=== PATIENT | female | born 1945 | race Two or more races ===

== ENCOUNTER → 2020-03-08 | Outpatient (CLI) | payer OTHER, MEDICAID ==
[~2020-03-08] VITALS: Ht 160 cm; Wt 84.4 kg
[~2020-03-08] MED LIST: ADENOSINE 71 MG in GIVE UN-DILUTED 0 ML IV STA
[2020-03-08 09:30] VITALS: BP 135/52
== END | disposition home or self-care (01) ==
LOC: XYW 08:07
DX: R94.31 Abnormal electrocardiogram [ECG] [EKG] (principal)
CPT/HCPCS: 78452; 93017; A9500; J0153

== ENCOUNTER → 2020-06-16 | Outpatient (CLI) | payer OTHER, MEDICAID | END | disposition home or self-care (01) | LOC: LAB 17:09 | PROVIDERS: ATTEND Family Medicine | DX: Z20.828 Contact with and (suspected) exposure to other viral communicable diseases (principal) | CPT/HCPCS: 36415; 87426 ==